=== PATIENT | female | born 1985 | race Caucasian/White ===

== ENCOUNTER → 2018-02-26 | Outpatient (CLI) | payer OTHER, SELFPAY ==
--- NOTE | 2018-02-26 15:01 | US ---
EXAM DESCRIPTION: Abdomen,Complete CLINICAL HISTORY: 32 years Female, R10.84 COMPARISON: None available. TECHNIQUE: Multiple transverse and longitudinal static sonographic images of the upper abdomen were obtained. FINDINGS: Visualized portions of the pancreas appear normal. The liver demonstrates normal size and echogenicity with no intrahepatic biliary ductal dilatation. No focal masses are identified sonographically. The gallbladder is well distended with no gross abnormality. No evidence of wall thickening or hyperemia or pericholecystic fluid. The common duct is nondilated and measures 3.5 mm. The right kidney measures 9.3 x 4.4 x 4.6 cm and the left kidney measures 9.1 x 5.1 x 5 cm. No hydronephrosis or perinephric fluid collections. The spleen measures 10.9 cm. The visualized abdominal aorta is nonaneurysmal and measures 1.4 cm in the proximal portion, 1.3 cm in the midportion and 1.2 cm in the distal portion. Visualized portions of the inferior vena cava appears normal. IMPRESSION: Normal ultrasound of the upper abdomen. Electronically signed by: Chapis Tripp MD 02/26/2018 3:00 PM CDT
== END ==
LOC: US 13:46
PROVIDERS: ATTEND Physician Assistant
DX: R10.84 Generalized abdominal pain (principal)